=== PATIENT | male | born 1965 | race Caucasian/White ===

== ENCOUNTER 2022-04-09 18:22 | Emergency (ER) | payer BC | END 2022-04-09 20:57 | disposition home or self-care (01) | LOC: JD.ED 18:22 | DX: S43.102A Unspecified dislocation of left acromioclavicular joint, initial encounter (principal); E78.00 Pure hypercholesterolemia, unspecified; E10.9 Type 1 diabetes mellitus without complications; F17.210 Nicotine dependence, cigarettes, uncomplicated; Z79.899 Other long term (current) drug therapy; Z79.4 Long term (current) use of insulin; W18.39XA Other fall on same level, initial encounter | CPT/HCPCS: 71101-26-LT; 71101-LT; 73000-26-LT; 73000-LT; 73030-26-LT; 73030-LT; 99283 ==